=== PATIENT | female | born 1985 | race African-American/Black ===

== ENCOUNTER 2021-11-11 08:32 | Emergency (ER) | payer OTHER, SELFPAY ==
--- NOTE | ~2021-11-11 | XR_ITS ---
EXAMINATION: XR chest 2V DATE: 11/11/2021 09:19 INDICATION: Hemoptysis. TECHNIQUE: Frontal and lateral views of the chest were obtained. COMPARISON: None. FINDINGS: The chest demonstrates clear lungs without pneumonia, pleural effusion, or pneumothorax. Th e heart size is normal. IMPRESSION: 1. No acute cardiopulmonary disease. Reviewed, dictated and finalized at location A.
[2021-11-11 08:38] VITALS: BP 133/82; PULSE 74; RESP 14; TEMP 36.3; O2SAT 100
--- NOTE | 2021-11-11 09:05 | ED.GENADULT ---
HPI - General Adult General Chief complaint: Upper Respiratory Infection Stated complaint: coughing up blood Time Seen by Provider: 11/11/21 08:50 History of Present Illness HPI narrative: 36-year-old female presents to the emergency room for evaluation of coughing up blood this morning. Patient states that she woke up this morning, clearing her throat, and then coughed up pink-tinged sputum with a small clot. Patient also stated that when she had done brushing her teeth she noticed a little blood in her sputum. Patient denies cough, shortness of breath, chest pain, difficulty breathing. 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 Related Data Allergies Allergy/AdvReac Type Severity Reaction Status Date / Time No Known Allergies Allergy Verified 11/11/21 08:42 Review of Systems Review of Systems: CONSTITUTIONAL: Denies fever, chills, or sweats. EYES: Denies visual changes, redness, or discharge. ENT: Denies rhinorrhea, congestion, sore throat, or otalgia. CARDIOVASCULAR: Denies chest pain, palpitations, or edema. RESPIRATORY: Denies cough or dyspnea. GASTROINTESTINAL: Denies abdominal pain, nausea, vomiting, or diarrhea. GENITOURINARY: Denies dysuria or hematuria. SKIN: Denies rash or itching. MUSCULOSKELETAL: Denies back pain, joint pain, or myalgia. NEUROLOGIC: Denies headache, numbness, dizziness, or weakness. PSYCHIATRIC: Denies anxiety or depression. Exam Narrative: GENERAL: Well-appearing, well-nourished, and in no acute distress. HEAD: Normocephalic, atraumatic. EYES: PERRLA and EOMI. ENT: Nares clear, no rhinorrhea or epistaxis. Mucous membranes moist. Oropharynx without tonsillar hypertrophy exudate NECK: Supple. No adenopathy or masses. CHEST: Clear to auscultation. No respiratory distress. No wheezes rales or rhonchi HEART: Regular rate and rhythm. No murmur heard. Normal peripheral pulses. EXTREMITIES: Normal range of motion. No edema. SKIN: Warm, dry, no rash. NEURO: No focal deficits. Alert and oriented x3. PSYCH: Normal mood and affect. Course Vital Signs Vital signs: Vital Signs Temperature 36.3 C L 11/11/21 08:38 Pulse Rate 74 11/11/21 08:38 Respiratory Rate 14 11/11/21 08:38 Blood Pressure 133/82 11/11/21 08:38 Pulse Oximetry 100 11/11/21 08:38 Oxygen Delivery Room Air 11/11/21 08:38 Temperature 36.3 C L 11/11/21 08:38 Pulse Rate 74 11/11/21 08:38 Respiratory Rate 14 11/11/21 08:38 Blood Pressure 133/82 11/11/21 08:38 Pulse Oximetry 100 11/11/21 08:38 Oxygen Delivery Room Air 11/11/21 08:38 Medical Decision Making MDM Narrative Medical decision making narrative: 36-year-old female presented to the emergency room for evaluation of 1 incident of questionable hemoptysis. Patient stated that she coughed and had some pink-tinged sputum associated with it and a small clot. Patient does have a history of PE DVT. Based on the history and physical doubt any underlying cardiopulmonary process. Chest x-ray showed no acute cardiopulmonary abnormality. Patient is nontoxic appearing and not in need of any medical intervention at this time. Negative D-dimer, so presentation is unlikely thrombotic event. Presentation is also not consistent with any chronic cause of cough. Will discharge patient home and have her follow-up with primary care physician. Vital Signs Vital Signs: Vital Signs Temperature 36.3 C L 11/11/21 08:38 Pulse Rate 74 11/11/21 08:38 Respiratory Rate 14 11/11/21 08:38 Blood Pressure 133/82 11/11/21 08:38 Pulse Oximetry 100 11/11/21 08:38 Oxygen Delivery Room Air 11/11/21 08:38 Temperature 36.3 C L 11/11/21 08:38 Pulse Rate 74 11/11/21 08:38 Respiratory Rate 14 11/11/21 08:38 Blood Pressure 133/82 11/11/21 08:38 Pulse Oximetry 100 11/11/21 08:38 Oxygen Delivery Room Air 11/11/21 08:38 Lab Data Lab results reviewed: Yes I reviewed the patient's lab results. Lab
[2021-11-11 09:37] LABS: D Dimer 0.36 ug/mL (<0.48)
[2021-11-11 10:06] VITALS: BP 132/76; PULSE 84; RESP 17; O2SAT 99
== END 2021-11-11 10:07 | disposition home or self-care (01) ==
PROVIDERS: Emergency Provider Nurse Practitioner Family
DX: R05.9 Cough, unspecified (principal); Z86.711 Personal history of pulmonary embolism; Z86.718 Personal history of other venous thrombosis and embolism
CPT/HCPCS: 36415; 71046; 85380; 99283